=== PATIENT | female | born 1985 | race Caucasian/White ===

== ENCOUNTER 2025-01-11 11:44 | Emergency (ER) | payer SELFPAY ==
[~2025-01-11] VITALS: Ht 160 cm; Wt 58.0 kg
[2025-01-11 11:49] VITALS: BP 164/109; TEMP 37; O2SAT 100
[2025-01-11 11:55] VITALS: PULSE 105; RESP 12; O2SAT 99
== END 2025-01-11 14:33 | disposition left against medical advice (07) ==
LOC: ER 11:44
DX: R10.9 Unspecified abdominal pain (principal); Z53.21 Procedure and treatment not carried out due to patient leaving prior to being seen by health care provider